=== PATIENT | male | born 1960 | race Caucasian/White ===

== ENCOUNTER 2017-01-20 06:06 | Inpatient (IN) | payer OTHER ==
[~2017-01-20] VITALS: Ht 170.2 cm; Wt 117.2 kg
--- NOTE | ~2017-01-20 | CON ---
PATIENT'S NAME: ELAINE CARTWRIGHT [facility] AGE: 56 Y [address] ROOM: [address] [place], [place] [address] LOCATION: GPCU ADMIT DATE: 01/20/2017 Consultation DISCHARGE DATE: FAMILY PHYSICIAN: Rajat Vann PA-C ATTENDING PHYSICIAN: AISHA EMERSON DATE OF CONSULTATION: 01/20/2017 REFERRING PHYSICIAN: JERO MCCURDY REQUESTING PHYSICIAN: Aisha Emerson MD. REASON FOR CONSULTATION: Multivessel coronary artery disease, severe, and ischemic cardiomyopathy. HISTORY OF PRESENT ILLNESS: The patient is a 56-year-old white male who resides in [place]. Back in early December of this year, the patient began spontaneously having symptomatology of dyspnea on exertion as well as significant swelling in his bilateral lower extremities. He went in to see his primary provider and began a diuretic therapy as well as the start of a cardiac workup consisting of an echocardiogram on December 25, 2016. The echo revealed inferior wall hypokinesis with the ejection fraction of 30%. The patient was felt to be at a level of congestive heart failure systolically at stage 4. He was set up to have a stress test that returned positive on January 12, 2017. He was, therefore, set up to see Dr. Emerson in the outreach clinic whereby she ordered a diagnostic heart catheterization for anginal equivalent. The patient utilized the diuretic therapy and apparently dropped about 22 pounds in fluid weight. He presented yesterday for his diagnostic catheterization with fairly significant findings to include no left main coronary artery disease. The LAD at the distal portion demonstrated a 90% stenosis. A lesion on the first diagonal proximally was stenosed at 95%. To the left circumflex and ostial 90% stenosis, proximally 90% stenosis, the first obtuse marginal is 100% stenosis, and the distal area is 90%. To the RCA, a mid 70% stenosis and a first right posterior lateral branch ostially at 100% stenosis. The ramus intermedius demonstrated a proximal subsection at 100% stenosis. Dr. Gardner discussed the findings with the patient and his family, and the patient was referred for coronary artery bypass grafting. The patient's history is for insulin-dependent diabetes mellitus, poorly controlled hypertension, and ischemic cardiomyopathy. The EF per the cardiac catheterization returned at 40%. PAST MEDICAL HISTORY: Illnesses: Insulin-dependent diabetes mellitus, dyslipidemia, systolic congestive heart failure, hypertension, GERD, nephrolithiasis, osteoarthritis, PATIENT'S NAME: ELAINE CARTWRIGHT [facility] AGE: 56 Y [address] ROOM: [address] [place], [place] [address] [facility] ADMIT DATE: 01/20/2017 Consultation DISCHARGE DATE: FAMILY PHYSICIAN: Rajat Vann PA-C ATTENDING PHYSICIAN: AISHA EMERSON ischemic cardiomyopathy. SURGERY/PROCEDURES: A left elbow repair following fracture, left shoulder repair, and right-sided carpal tunnel release. ALLERGIES: METFORMIN AND FLAGYL. SOCIAL HISTORY: The patient is . He and his reside in [place], [place]. The couple have grown children. The patient does chew tobacco approximately 1 can every 3 days. He does occasionally imbibe. He works for the [employer] in [place]. FAMILY HISTORY: His father had a history with heart disease. His father, as the patient shares, had coronary artery bypass grafting and in the procedure. His mother had a history with diabetes mellitus and had a stroke. His brother has a history with colon cancer. MEDICATIONS: 1. Aspirin 81 mg daily. 2. Lipitor 40 mg daily. 3. Farxiga 10 mg q.a.m. 4. Herba-Vision one tablet daily. 5. Humalog 75/25, 30 units subcu in the a.m. 6. Humalog 75/25, 40 units in the p.m. 7. Losartan/hydrochlorothiazide 100/25 one p.o. daily. 8. Melatonin 10 mg at h.s. 9. Multivitamin daily. 10. Prilosec 20 mg daily. 11. Klor-Con 10 mEq daily. 12. Viagra 50 mg p.o. daily/p.r.n. 13. Demadex 10 mg daily/p.r.n. edema. 14. Garcinia cambogia tablet one p.o. daily. SYSTEM REVIEW: GENERAL: The patient does state that he did lose about 22 pounds in fluid weight after diuresis from the onset of fluid. No fever, chills, or sweats. He has had some fatigue. HEENT: No visual complaints. He does wear glasses. No hearing complaints. He does have some age-related changes. No difficulty swallowing, change in voice, or hoarseness. RESPIRATORY: The patient has had some cough as well as associated dyspnea on PATIENT'S NAME: ELAINE CARTWRIGHT [facility] AGE: 56 Y [address] ROOM: [address] [place], [place] [address] [facility] ADMIT DATE: 01/20/2017 Consultation DISCHARGE DATE: FAMILY PHYSICIAN: Rajat Vann PA-C ATTENDING PHYSICIAN: AISHA EMERSON exertion, shortness of breath at rest. This has since resolved, however, with removal of fluid. CARDIOVASCULAR: The patient has never had any chest pain, chest pressure, or palpitations. No intermittent claudication. He no longer has complaints of the lower extremity edema. GI: No nausea, vomiting, constipation, or diarrhea. He does have reflux and heartburn and takes medication. : Does have history with nephrolithiasis and erectile dysfunction. MUSCULOSKELETAL: Generalized arthritic aches and pains. NEUROLOGIC: No frequent or severe headaches. No history of seizures, memory loss, or syncope. PSYCHIATRIC: No psychiatric or psychiatric treatment history. ENDOCRINE: He does have a history of diabetes mellitus, which is not overly well controlled. He has started a new medication recently. No history of diagnosed thyroid disease. INTEGUMENT: No known skin disease. PHYSICAL EXAMINATION: VITAL SIGNS: Blood pressure 168/83, pulse is 68, respirations 18, temp 97.7, O2 saturations 98% on room air. Weight is 115 kg, height is 170.2 cm. GENERAL: He is very pleasant. He is in no acute distress. He is somewhat tearful regarding the results of his cardiac catheterization. HEENT: Normocephalic with EOMIs intact. Conjunctivae clear. NECK: Trachea midline with no palpable lymphadenopathy or thyromegaly. LUNGS: Clear to auscultation bilaterally. CARDIOVASCULAR: Regular rate and rhythm. ABDOMEN: Obese, soft, nontender by 4 quadrants with positive bowel sounds throughout. EXTREMITIES: No overt varicosities or edema. MUSCULOSKELETAL: Good range of motion of bilateral upper and lower extremities. NEUROLOGIC: Alert and oriented. SKIN: No suspicious skin lesions. LABORATORY DATA: Laboratory and test results, creatinine is 1.3. IMPRESSION: 1. Severe multivessel coronary artery disease. 2. Ischemic cardiomyopathy. 3. Poorly controlled hypertension. 4. Diabetes mellitus. 5. Acute kidney injury, likely due to recent diuresis and ibuprofen use. RECOMMENDATION AND PLAN: PATIENT'S NAME: ELAINE CARTWRIGHT [facility] AGE: 56 Y [address] ROOM: [address] [place], [place] [address] LOCATION: GPCU ADMIT DATE: 01/20/2017 Consultation DISCHARGE DATE: FAMILY PHYSICIAN: Rajat Vann PA-C ATTENDING PHYSICIAN: AISHA EMERSON Dr. spoke to the patient and his family with regard to surgical revascularization. The cardiac catheterization film was reviewed. Recommended are 4-5 vessel bypass surgery. Risks and benefits of the procedure were discussed. Discussion of the risks include, but were not limited to, bleeding, requiring transfusion or return to the operative suite, myocardial infarction, cerebrovascular accident, renal and/or pulmonary failure. Also discussed arrhythmias and infection as well as operative and postoperative mortality. The patient verbalizes understanding of the risks and benefits. He does consent to proceed. We will plan for surgery on January 22, 2017. Questions were asked and answered to the patient and family's satisfaction. We would like to thank Dr. Emerson for allowing us to participate in the care of this very pleasant gentleman. EDWIGE LIANG APRN FOR JOSHUA DILLON, DO DLQ/modl /[id number] d: 01/21/174 t: 02/02/17 1132, CONSULTATION REPORT
--- NOTE | ~2017-01-20 | CATH ---
Cardiac Diagnostic Report Demographics Patient Name CHAY Flores Gender Male Date of 1960 Age 56 year(s) Patient Number [id number] Date of Study 01/20/2017 Visit Number [id number] Room Number G63[address] [place] [id number] Ht 170.18 cm Wt 115 kg Referring Edwar Earl I Primary Physician Physician RONN Performing [facility] Secondary Physician Physician Aisha LION Diagnostic [facility] Assisting Physician Physician Aisha LION Interventional Physician Arson And Bomb Investigator Physician Findings and Conclusions Diagnostic Findings and Conclusion Multivessel CAD in Insulin dependant diabetic patient with ischemic Cardiomyopathy with LVEF of 40-45%. 2. No pulmonary HTN, Mean PA 17 mmHg. 3. LVEDP 10 mmHg. Diagnostic Recommendations Refer for CABG. Thanks Dr. Jorge. Continue current medications. Continue aspirin. Beta Emelia. Statin. Hydration and follow up Creatinine. Cardiac diet. Procedure Description The patient was brought to the diagnostic cardiac catheterization-EP laboratory in the fasting, non-sedated state. Informed consent was obtained in the written and verbal form after the risks and benefits were explained. The patient had no further questions and agreed to proceed. The planned puncture-incision site(s) were shaved and prepped with ChloraPrep and draped in the usual sterile manner. Conscious sedation, supplemental oxygen, and pain control medications were delivered by a registered nurse under physician guidance. Surface ECG rhythm, blood pressure measurement, and pulse oximetry were monitored throughout the procedure. Arterial access. The access site was infiltrated with lidocaine. The vessel was entered with the Seldinger technique. A sheath was advanced into the vessel and used for catheter placement. Venous access. The access site was infiltrated with 2% lidocaine. The vessel was entered with the Seldinger technique. A sheath was advanced into the vessel and used for catheter placement. Selective left coronary angiography. A catheter was advanced into the left coronary vessel ostium under Fluoroscopic guidance. Contrast was injected by hand. Images were obtained in multiple projections. Selective right coronary angiography. A catheter was advanced into the right coronary vessel ostium under fluoroscopic guidance. Contrast was injected by hand. Images were obtained in multiple projections. Left heart catheterization. A catheter was advanced across the aortic valve to the left ventricle under fluoroscopic guidance. Resting hemodynamics were obtained. Right heart catheterization. A Guilderland Janny catheter was successfully advanced to the right atrium, right ventricle, pulmonary artery, and pulmonary artery wedge position under fluoroscopic guidance. Resting hemodynamics were obtained. Measurements included pressures, arterial and venous oxygen saturation samples, and cardiac output. The Guilderland was removed without difficulty. Arterial and Venous hemostasis was achieved. The patient was transferred to a regular nursing floor via cart accompanied by a nurse. The patient left the laboratory in stable condition. Diagnostic Cath Status: Elective Procedure Procedure Type Diagnostic procedure:Angiography:, Right and Left Heart Cath, Coronary Angios Indications: Unstable angina. The procedure was explained in detail to the patient. Risks, complications and alternative treatments were reviewed. Written consent was obtained. Medications Reviewed with Patient prior to Procedure. Angiographic Findings Dominance: Right Cardiac Arteries and Lesion Findings LMCA: Normal (0% Stenosis). LAD: Lesion on Mid LAD: 30% stenosis . Lesion on Dist LAD: 90% stenosis . Lesion on 1st Diag: Proximal subsection.95% stenosis .The lesion was diffuse. LCx: Lesion on Prox CX: Ostial.90% stenosis . Lesion on Prox CX: 90% stenosis . Lesion on 1st Ob Conchis% stenosis . Lesion on Dist CX: 90% stenosis . RCA: Lesion on Mid RCA: 70% stenosis . Lesion on 1st RPL: Ostial.100% stenosis . Lesion on R PDA: 10% stenosis . Ramus: Lesion on Ramus: Proximal subsection.100% stenosis . Cardiac Collaterals - collateral flow from the Dist LAD to the R PDA. - collateral flow from the Dist RCA to the Dist CX. Coronary Tree Procedure Data Procedure Date Date: 01/20/2017Start: 08:36 AMEnd: 09:23 AM Entry Locations - Retrograde Percutaneous access was performed through the Right Radial artery (Primary location). A 5 Fr sheath was inserted. Hemostasis was successfully obtained using Mechanical Compression. Closure Comments: R band with 13 cc air deployed by RT Sakina.. - Antegrade Percutaneous access was performed through the Right Brachial vein. A 6 Fr sheath was inserted. Hemostasis was successfully obtained using Manual Compression. Closure Comments: Pressure held for 10 minutes by RT. Sakina. Procedure Medications Order and Administration + + + +-------+ !Time !Medication !Dosage !Route ! + + + +-------+ !01/20/2017 08:34 AM !Versed !1 mg !I.V. ! + + + +-------+ !01/20/2017 08:35 AM !Fentanyl !50 mcg !I.V. ! + + + +-------+ !01/20/2017 08:39 AM !Radial Verapamil !2.5 mg !I.A. ! + + + +-------+ !01/20/2017 08:42 AM !Oxygen !2 l/min !NC ! + + + +-------+ !01/20/2017 08:52 AM !Heparin (ACC_3) !5000 units !I.V. ! + + + +-------+ Devices Used - A6 Fr. Balloon Wedge Catheterwas used for:Right heart cath. - A5 Fr. BS JR 4 Diag. Catheterwas used for:Right coronary angiography. - A5 Fr. BS JL 3.5 Diag. Catheterwas used for:Left coronary angiography. - A5 Fr. BS Angled Pigtail Diag. Catheterwas used for:LV Pressures. Contrast Material - Isovue 76616 ml Fluoroscopy Time: Diagnostic: 4:42 minutes. Total: 4:42 minutes. Fluoroscopy Dose: Diagnostic: 1337 mGy. Total: 1337 mGy. Estimated Blood Loss: 10 ml. Medical History Performed Procedures and Imaging Results - Stress testing with SPECT MPIwas performed. Results were: Positive. Risk/Extent of ischemia was: High risk. Allergies - Other:(Metformin, Flagyl). Risk Factors The patient risk factors include:hypertension, diabetes mellitus, chronic lung disease, last creatinine: 1.3 mg/dl, creatinine clearance: 100.75 ml/min, dyslipidemia and prior heart failure . Admission Data Admission Date: 01/20/2017 Admission Time: 06:06 AM Admit Source: Other Insurance Payors: Medicare. Admission Medications + +------+-------+ + + + + !Medication!Dosage!Times !Last !Last !Administered !Comments ! ! ! !Per Day!Delivery !Delivery ! ! ! ! ! ! !Date !Time ! ! ! + +------+-------+ + + + + !Aspirin ! ! ! ! !Yes ! ! !(any) ! ! ! ! ! ! ! + +------+-------+ + + + + !ARB (any) ! ! ! ! !Yes ! ! + +------+-------+ + + + + !Statin ! ! ! ! !Yes ! ! !(any) ! ! ! ! ! ! ! + +------+-------+ + + + + Clinical Evaluation Leading to Procedure - The patient's CAD presentation was assessed as: Unstable angina. - The patient's anginal syndrome during the past two weeks was assessed as: Class II according to the [place] Cardiovascular Society Classification System (CCS). - The patient has been in a state of heart failure within the past two weeks. - The patient's heart failure status was assessed as NYHA Class III. - The reason for the patient's optical laboratory mechanic visit is evaluation of cardiomyopathy and/or evaluation of left ventricular systolic dysfunction. Hemodynamics Condition: Rest O2 Consumption: Estimated: 250.40Heart Rate: 54 bpm Oxygen Saturation +--------+-----+----+ +---+ + !Location!pCO2 !pO2 !% Saturation !Hgb!O2 Content ! +--------+-----+----+ +---+ + !RV ! ! !71.1 ! ! ! +--------+-----+----+ +---+ + !PA ! ! !70.2 ! ! ! +--------+-----+----+ +---+ + !AO ! ! !94.2 ! ! ! +--------+-----+----+ +---+ + Pressures (mmHg) +-----+ + !Site !Pressure ! +-----+ + !PCW !25/08 (10) ! +-----+ + !PA !05/09 (17) ! +-----+ + !RV !/- ,5 ! +-----+ + !RA !05/15 (4) ! +-----+ + !AO !143/ (106) ! +-----+ + !AO !143/ (108) ! +-----+ + !LV !146/2 ,8 ! +-----+ + !LV !151/3 ,10 ! +-----+ + !AO !149/79 (106) ! +-----+ + !LV !152/3 ,11 ! +-----+ + Cardiac Output +------+ + + + !Method!CO (l/min) !CI (l/min/m2) !SV (ml) ! +------+ + + + !Nancy !4.51 !2 !83.81 ! +------+ + + + Valve Gradients and Areas + +--------+--------+--------+---------+ + + !Valve !Peak !Mean !Area !Index !Flow !Source ! + +--------+--------+--------+---------+ + + !Aortic !3 !5 !2.19 !0.98 !216.72 !Nancy ! + +--------+--------+--------+---------+ + + !Aortic !3 !5 ! ! ! ! ! + +--------+--------+--------+---------+ + + Shunts Oxygen Values O2 Capacity 231.2 O2 Consumption 250.4 Flows (l/min) Qs 4.51 Qe/Qp 1 Qp 4.51 Qp/Qs 1 Qe 4.51 Vascular Resistance (dynes x sec x cm-5) + +----+----+----+----+---------+-------+ !CO method !TSVR!SVR !TPVR!PVR !TPVR/TSVR!PVR/SVR! + +----+----+----+----+---------+-------+ !Nancy !23.5!22.6!3.66!1.34!0.16 !0.06 ! + +----+----+----+----+---------+-------+ !Qp or Qs !23.5!22.6!3.66!1.34!0.16 !0.06 ! + +----+----+----+----+---------+-------+ Signatures dtt: AISHA EMERSON dtd: 01/20/17 0836 Physician Self Edit
--- NOTE | ~2017-01-20 | ENPV ---
Vascular Lower Extremity Vein Mapping Procedure Demographics Patient Name ELAINE CARTWRIGHT Date of Study 01/20/2017 Patient Number [id number] Gender Male Date of 1960 Age 56 Visit Number [id number] Height 67 Accession Number [id number] Weight 253.53 Referring Edwar Earl I PAC Interpreting Gee Aguillon MD Physician David Leonard Physician Physician Ordering David Leonard Sleeve Setter Safety Stitch Physician Yardage Tufting Machine Operator Melonie Grace [facility] Dylan Narvaez Conclusions Summary No evidence of superficial thrombophlebitis bilaterally. The left greater saphenous vein appears more suitable for harvest. Procedure Type of Study: Veins:Lower Extremity Vein Mapping, Vein Mapping. Indications for Study:Pre-op CABG. Appropriate Use Criteria:8 Allergies - Other:(Metformin, Flagyl). Patient Status:Routine. Study Location:Inpatient Portable. Technical Quality:Adequate visualization. Risk Factors - The patient's risk factor(s) include: chronic lung disease, diabetes mellitus, dyslipidemia and arterial hypertension. - The patient's last creatinine was 1.3 mg/dl. Velocities are measured in cm/s ; Diameters are measured in cm + ++--------++--------+ !Superficial - Great Saphenous Vein !!Right !!Left ! + ++--------++--------+ !Location !!Diameter!!Diameter! + ++--------++--------+ !Sapheno Femoral Junction !!0.68 !!0.34 ! + ++--------++--------+ !GSV High Thigh !!0.48 !!0.36 ! + ++--------++--------+ !GSV Mid Thigh !!0.4 !!0.42 ! + ++--------++--------+ !GSV Low Thigh !!0.35 !!0.36 ! + ++--------++--------+ !GSV Knee !!0.32 !!0.35 ! + ++--------++--------+ !GSV High Calf !!0.24 !!0.37 ! + ++--------++--------+ !GSV Mid Calf !!0.25 !!0.34 ! + ++--------++--------+ !GSV Low Calf !!0.39 !!0.36 ! + ++--------++--------+ Signature dtt: MADDY OCHOA dtcaroline: 01/20/17 1415 Physician Self Edit
--- NOTE | ~2017-01-20 | OR ---
PATIENT'S NAME: [facility] AGE: 56 Y [address] ROOM: [place] [address] LOCATION: GPCU ADMIT DATE: 01/20/2017 OR/Procedure Report DISCHARGE DATE: 01/28/2017 FAMILY PHYSICIAN: Rajat Vann PA-C ATTENDING PHYSICIAN: Aisha Hernandez SURGEON: Jorge Jorge DO [employer] OPERATOR: DATE OF PROCEDURE: 01/22/2017 PREOPERATIVE DIAGNOSES: 1. Gxx-WI-kgjdanx elevation myocardial infarction. 2. Congestive heart failure. 3. Coronary vessel coronary artery disease. 4. Diabetes mellitus. 5. Obesity. 6. Hypertension. 7. Ejection fraction 30%. POSTOPERATIVE DIAGNOSES: 1. Mtv-TP-pjohdop elevation myocardial infarction. 2. Congestive heart failure. 3. Coronary vessel coronary artery disease. 4. Diabetes mellitus. 5. Obesity. 6. Hypertension. PROCEDURES: 1. Coronary artery bypass grafting x6, reverse saphenous vein graft to the apical left anterior descending sequential to diagonal. 2. Reverse saphenous vein graft to the posterior descending artery, reverse saphenous vein graft to the posterolateral septal branch, reverse saphenous vein graft to the ramus intermedius artery sequential to the obtuse marginal artery. REFERRING PHYSICIAN: Aisha Hernandez M.D. DESCRIPTION OF PROCEDURE: The patient is a 56-year-old white male with the above-noted diagnosis. He has been brought to the operative suite today after informed consent was obtained. He was sterilely prepped and draped in the usual fashion for a sternotomy incision with lower extremity vein harvest. Sternal incision made and the sternum was divided in the midline. Concurrently to this, saphenous vein was harvested endoscopically from the lower extremities. His coronary catheterization had shown his proximal and mid LAD to be relatively free of disease, however, the very distal LAD was tightly stenosed and had a wrap-around LAD. SILVA would not reach this and given its [facility]GE[facility] 56 Y [address] ROOM: [place] [address] LOCATION: GPCU ADMIT DATE: 01/20/2017 OR/Procedure Report DISCHARGE DATE: 01/28/2017 FAMILY PHYSICIAN: Rajat Vann PA-C ATTENDING PHYSICIAN: IsaacCourtney sousaAisha area of small distribution but a wrap-around that did provide some collateral height, elected to use a vein graft to the distal area. The vein was prepared for bypass. The patient was heparinized. Cannulation sutures placed in the ascending aorta and right atrium for bypass and cardioplegia cannulas. The patient was cannulated and connected to bypass pump without difficulty. Crossclamp was applied. Antegrade and retrograde cardioplegia were given along with topical cold saline cardiac arrest and the heart arrested without difficulty. The inferior small of the heart was inspected. Given total occlusion in this area, we were not exactly sure what we have find. We thought there would be a posterolateral branch, but we were pleased to find both posterolateral and posterior descending branches of adequate caliber. We began with the posterolateral branch and end-to-side anastomosis created with the saphenous vein. It was sized appropriately and connected to cardioplegia system. Another 500 mL of vein graft and retrograde cardioplegia was given and this was done after each venous distal anastomosis. Similar venous distal anastomosis was then created to the posterior descending artery. We then identified the obtuse marginal and a ramus, although they were of smaller caliber. We felt that given his lateral wall ischemia and revascularize as much as possible in this area would be of benefit. We began with the obtuse marginal, performed our end-to-side anastomosis here, and then sequential this to the ramus in a [id number] fashion and then connected again to the cardioplegia system. Finally, we identified the apical segment of the LAD, performed an end-to-side anastomosis there, and then a [id number] anastomosis to the diagonal and then removed the crossclamp. We now hooked all of our grafts to the Octopus system and initiated retrograde warm blood along with vein graft warm blood and placed our partial occlusion clamp. We then placed 2 of our grafts to the ascending aorta under partial occlusion clamping with 4-0 punch and 6-0 Prolene. We then removed the partial occlusion clamp de- aired. The grafts and the bulldogs were removed and distal flow was given. We then utilized 4.3 and 3.8 heartstring for the remainder of the anastomosis to the ascending aorta. Once all this was completed, all distal sites were inspected and found to be hemostatic. Proximal sites were found to be hemostatic. Warm blood was now discontinued and the retrograde cannula was removed. Ventilations were initiated. We began to wean from cardiopulmonary bypass. We weaned from bypass without difficulty removing the venous cannula, returning the pumped volume from the pump to the patient, and then removing the ascending aortic cannula and giving protamine. Two atrial and one ventricular temporary pacemaking wires were placed. Two chest tubes were placed, one in the anterior mediastinal space and one in the posterior pericardial space, and the sternum was then approximated with ZIPFIX system. Soft tissues irrigated and again closed in layered fashion. All sponge, instrument, and needle counts were correct. The patient was transferred to the intensive care unit in stable condition. PATIENT'S NAME: [facility] AGE: 56 Y [address] ROOM: [address] [address] LOCATION: GPCU ADMIT DATE: 01/20/2017 OR/Procedure Report DISCHARGE DATE: 01/28/2017 FAMILY PHYSICIAN: Rajat Vann PA-C ATTENDING PHYSICIAN: Aisha Hernandez DO JOHNY FRIEDMAN/douglas /[id number] CC: JERO MCCURDY d: 02/02/17 1858 t: 02/03/17 0932, OPERATIVE SUMMARY
[~2017-01-20 06:06] MED LIST: ASPIRIN LO-DOSE81 MG PO; DEMADEX20 MG PO; FARXIGA10 MG PO; GARCINIA CAMBO1 EACH PO; HUMALOG MI100 UNIT/5 SUB-Q; KLOR-CON 1010 MEQ PO; LIPITOR40 MG PO; LOSARTAN-HCTZ1 EAC1 PO; MELATONIN10 M2 PO; MULTI VITAMIN1 EACH PO; PRILOSEC20 MG PO; VIAGRA100 MG PO; [UNRECOGNIZED DRUG - OTHER] PO
[2017-01-20 06:47] LABS: BASOPHIL # 0.1 K/uL (0.0-0.2); BASOPHIL % 0.8 %; EOSINOPHIL # 0.2 K/uL (0.0-0.5); EOSINOPHIL % 2.7 %; HEMATOCRIT 49.1 % (37.0-53.0); IMMATURE GRANULOCYTE # 0.1 K/uL (0.0-0.3); IMMATURE GRANULOCYTE % 0.7 %; LYMPHOCYTE # 2.8 K/uL (0.8-4.0); LYMPHOCYTE % 32.7 %; MCH 30.9 pg (27.0-34.0); MCHC 34.6 gm/dL (32.0-36.5); MCV 89.1 fl (83.0-98.0); MONOCYTE % 11.3 %; MPV 10.1 fl (9.4-12.4); NEUTROPHIL # (ANC) 4.4 K/uL (1.4-9.0); NEUTROPHIL % 51.8 %; NRBC % 0 /100WBC (0-0.00); PLATELET COUNT 190 K/uL (150-450); RBC 5.51 M/uL (4.00-6.00); RDW-CV 12.5 % (11.9-14.6); WBC 8.5 K/uL (4.0-11.0)
[2017-01-20 07:03] LABS: INR - (THERAPEUTIC) 0.97 (0.92-1.07); PROTIME 10.2 SECONDS (9.8-11.4); PTT 26 SECONDS (25-32)
[2017-01-20 07:09] LABS: ALBUMIN 3.7 gm/dL (3.5-5.0); ANION GAP 12.3 (10.0-19.0); CALCIUM 8.5 mg/dL (8.5-10.5); CREATININE 1.3 mg/dL (0.6-1.3); POTASSIUM 4.3 mMol/L (3.7-5.1); TOTAL BILIRUBIN 0.3 mg/dL (0.0-1.5); TOTAL PROTEIN 7.3 g/dL (6.0-8.4)
[2017-01-20 16:08] LABS: BASOPHIL # 0.1 K/uL (0.0-0.2); BASOPHIL % 0.8 %; EOSINOPHIL # 0.2 K/uL (0.0-0.5); EOSINOPHIL % 2.5 %; HEMOGLOBIN 15.9 g/dL (12.0-17.0); IMMATURE GRANULOCYTE # 0.1 K/uL (0.0-0.3); IMMATURE GRANULOCYTE % 0.6 %; LYMPHOCYTE # 2.5 K/uL (0.8-4.0); LYMPHOCYTE % 28.9 %; MCH 30.4 pg (27.0-34.0); MCHC 34.6 gm/dL (32.0-36.5); MONOCYTE # 0.8 K/uL (0.0-1.0); MONOCYTE % 8.7 %; MPV 10.3 fl (9.4-12.4); NEUTROPHIL # (ANC) 5.1 K/uL (1.4-9.0); NEUTROPHIL % 58.5 %; NRBC % 0 /100WBC (0-0.00); PLATELET COUNT 165 K/uL (150-450); RBC 5.23 M/uL (4.00-6.00); RDW-CV 12.4 % (11.9-14.6); WBC 8.7 K/uL (4.0-11.0)
[2017-01-20 16:20] LABS: PROTIME 10.5 SECONDS (9.8-11.4)
[2017-01-20 16:24] LABS: CREATININE 1.2 mg/dL (0.6-1.3); ESTIMATED GFR (MDRD EQUATION) > 60
[2017-01-21 01:21] LABS: BILIRUBIN URINE NEGATIVE (NEGATIVE); BLOOD URINE NEGATIVE /UL (NEGATIVE); COLOR URINE YELLOW (YELLOW); GLUCOSE URINE 1000 mg/dL (NEGATIVE); KETONE URINE NEGATIVE (NEGATIVE); LEUKOCYTES URINE NEGATIVE /UL (NEGATIVE); NITRITE URINE NEGATIVE (NEGATIVE); PROTEIN URINE NEGATIVE (NEGATIVE); TURBIDITY URINE CLEAR (CLEAR); UROBILINOGEN URINE NORMAL (NORMAL)
[2017-01-21 08:53] LABS: ALBUMIN 3.5 gm/dL (3.5-5.0); ANION GAP 12.1 (10.0-19.0); BLOOD UREA NITROGEN 18 mg/dL (6-24); CALCIUM 8.2 mg/dL (8.5-10.5); CHLORIDE 108 mMol/L (96-110); CO2 23 mMol/L (22-32); ESTIMATED GFR (MDRD EQUATION) > 60; PHOSPHORUS 3.3 mg/dL (2.5-4.9); POTASSIUM 4.1 mMol/L (3.7-5.1); SODIUM 139 mMol/L (135-145)
[2017-01-21 13:37] LABS: BICARBONATE 24.2 mmol/L (18.0-23.0); PCO2 39 mmHg (35-45); PO2 72 mmHg (80-90)
[2017-01-22 05:13] LABS: ALBUMIN 3.1 gm/dL (3.5-5.0); ANION GAP 10.7 (10.0-19.0); BLOOD UREA NITROGEN 19 mg/dL (6-24); CALCIUM 8.2 mg/dL (8.5-10.5); CHLORIDE 108 mMol/L (96-110); CO2 26 mMol/L (22-32); ESTIMATED GFR (MDRD EQUATION) > 60; PHOSPHORUS 3.4 mg/dL (2.5-4.9); POTASSIUM 3.7 mMol/L (3.7-5.1); SODIUM 141 mMol/L (135-145)
[2017-01-22 19:13] LABS: MCV 89.1 fl (83.0-98.0); RDW-CV 12.4 % (11.9-14.6)
[2017-01-22 19:16] LABS: RBC 2.94 M/uL (4.00-6.00)
[2017-01-22 19:17] LABS: HEMATOCRIT 26.2 % (37.0-53.0); HEMOGLOBIN 9.1 g/dL (12.0-17.0); MCHC 34.7 gm/dL (32.0-36.5); PLATELET COUNT 64 K/uL (150-450)
[2017-01-22 19:25] LABS: INR - (THERAPEUTIC) 1.72 (0.92-1.07); PROTIME 18.2 SECONDS (9.8-11.4)
[2017-01-22 19:26] LABS: PTT 29 SECONDS (25-32)
[2017-01-22 20:24] LABS: BICARBONATE 24.7 mmol/L (18.0-23.0); PCO2 39 mmHg (35-45); PO2 110 mmHg (80-90)
[2017-01-22 20:27] LABS: BICARBONATE 23.1 mmol/L (18.0-23.0); PCO2 36 mmHg (35-45); PO2 229 mmHg (80-90)
[2017-01-22 20:28] LABS: POTASSIUM 4.1 mEq/L (3.7-5.1); SODIUM 138 mEq/L (135-145)
[2017-01-22 20:29] LABS: PCO2 44 mmHg (35-45); PO2 275 mmHg (80-90); POTASSIUM 4.7 mEq/L (3.7-5.1); SODIUM 135 mEq/L (135-145)
[2017-01-22 20:39] LABS: ANION GAP 11.1 (10.0-19.0); BLOOD UREA NITROGEN 14 mg/dL (6-24); CALCIUM 7.7 mg/dL (8.5-10.5); CHLORIDE 110 mMol/L (96-110); CO2 23 mMol/L (22-32); CREATININE 1.1 mg/dL (0.6-1.3); ESTIMATED GFR (MDRD EQUATION) > 60; POTASSIUM 4.1 mMol/L (3.7-5.1); SODIUM 140 mMol/L (135-145)
[2017-01-22 20:40] LABS: BICARBONATE 25.7 mmol/L (18.0-23.0); PCO2 48 mmHg (35-45); PO2 257 mmHg (80-90)
[2017-01-22 20:41] LABS: POTASSIUM 4.5 mEq/L (3.7-5.1); SODIUM 137 mEq/L (135-145)
[2017-01-22 20:42] LABS: BICARBONATE 25.7 mmol/L (18.0-23.0); PCO2 53 mmHg (35-45); PO2 237 mmHg (80-90); POTASSIUM 3.8 mEq/L (3.7-5.1); SODIUM 138 mEq/L (135-145)
[2017-01-22 20:43] LABS: BICARBONATE 25.9 mmol/L (18.0-23.0); PCO2 45 mmHg (35-45); PO2 214 mmHg (80-90); POTASSIUM 3.8 mEq/L (3.7-5.1); SODIUM 137 mEq/L (135-145)
[2017-01-22 20:58] LABS: ALPHA ANGLE 62 degrees; CLOT FORMATION TIME 162 seconds; MAXIMUM CLOT FIRMNESS 47 mm; MAXIMUM LYSIS 0 %
[2017-01-22 20:59] LABS: ALPHA ANGLE 62 degrees (70-81); CLOTTING TIME 171 seconds; CLOTTING TIME 88 seconds (43-82); MAXIMUM CLOT FIRMNESS 48 mm (51-72)
[2017-01-23 04:27] LABS: BICARBONATE 25.4 mmol/L (18.0-23.0); PCO2 40 mmHg (35-45); PO2 67 mmHg (80-90)
[2017-01-23 04:42] LABS: ANION GAP 13.4 (10.0-19.0); BLOOD UREA NITROGEN 16 mg/dL (6-24); CHLORIDE 109 mMol/L (96-110); CO2 24 mMol/L (22-32); CREATININE 1.1 mg/dL (0.6-1.3); ESTIMATED GFR (MDRD EQUATION) > 60; POTASSIUM 4.4 mMol/L (3.7-5.1); SODIUM 142 mMol/L (135-145)
[2017-01-23 04:49] LABS: BASOPHIL # 0.1 K/uL (0.0-0.2); BASOPHIL % 0.3 %; HEMOGLOBIN 12.5 g/dL (12.0-17.0); IMMATURE GRANULOCYTE # 0.1 K/uL (0.0-0.3); IMMATURE GRANULOCYTE % 0.5 %; LYMPHOCYTE # 0.8 K/uL (0.8-4.0); LYMPHOCYTE % 5.1 %; MCV 88.3 fl (83.0-98.0); MONOCYTE # 1.4 K/uL (0.0-1.0); MONOCYTE % 8.7 %; NEUTROPHIL # (ANC) 13.8 K/uL (1.4-9.0); NEUTROPHIL % 85.4 %; NRBC % 0 /100WBC (0-0.00); RDW-CV 12.6 % (11.9-14.6)
[2017-01-23 04:50] LABS: HEMATOCRIT 36.3 % (37.0-53.0); MCH 30.4 pg (27.0-34.0); MCHC 34.4 gm/dL (32.0-36.5); PLATELET COUNT 103 K/uL (150-450); RBC 4.11 M/uL (4.00-6.00); WBC 16.1 K/uL (4.0-11.0)
[2017-01-24 04:14] LABS: HEMOGLOBIN 11.9 g/dL (12.0-17.0); MCH 30.9 pg (27.0-34.0); MCV 90.9 fl (83.0-98.0); MPV 10.2 fl (9.4-12.4); RBC 3.85 M/uL (4.00-6.00); RDW-CV 13.2 % (11.9-14.6)
[2017-01-24 04:26] LABS: CALCIUM 7.7 mg/dL (8.5-10.5); CREATININE 1.3 mg/dL (0.6-1.3)
[2017-01-25 03:51] LABS: BASOPHIL # 0.1 K/uL (0.0-0.2); BASOPHIL % 0.5 %; EOSINOPHIL # 0.2 K/uL (0.0-0.5); EOSINOPHIL % 1.2 %; HEMATOCRIT 34.4 % (37.0-53.0); HEMOGLOBIN 11.6 g/dL (12.0-17.0); IMMATURE GRANULOCYTE # 0.1 K/uL (0.0-0.3); IMMATURE GRANULOCYTE % 0.9 %; LYMPHOCYTE # 2.3 K/uL (0.8-4.0); LYMPHOCYTE % 17.3 %; MCH 30.7 pg (27.0-34.0); MCHC 33.7 gm/dL (32.0-36.5); MONOCYTE # 1.6 K/uL (0.0-1.0); MPV 10.7 fl (9.4-12.4); NEUTROPHIL % 68.1 %; NRBC % 0 /100WBC (0-0.00); PLATELET COUNT 101 K/uL (150-450); RBC 3.78 M/uL (4.00-6.00); RDW-CV 12.9 % (11.9-14.6); WBC 13.2 K/uL (4.0-11.0)
[2017-01-25 04:07] LABS: ALBUMIN 2.7 gm/dL (3.5-5.0); ANION GAP 10.5 (10.0-19.0); BLOOD UREA NITROGEN 20 mg/dL (6-24); CALCIUM 7.8 mg/dL (8.5-10.5); CHLORIDE 105 mMol/L (96-110); CO2 25 mMol/L (22-32); CREATININE 1.1 mg/dL (0.6-1.3); ESTIMATED GFR (MDRD EQUATION) > 60; PHOSPHORUS 2.4 mg/dL (2.5-4.9); POTASSIUM 4.5 mMol/L (3.7-5.1); SODIUM 136 mMol/L (135-145)
[2017-01-26 06:04] LABS: ALBUMIN 2.5 gm/dL (3.5-5.0); ANION GAP 12.1 (10.0-19.0); BLOOD UREA NITROGEN 22 mg/dL (6-24); CHLORIDE 104 mMol/L (96-110); CO2 28 mMol/L (22-32); ESTIMATED GFR (MDRD EQUATION) > 60; PHOSPHORUS 3.1 mg/dL (2.5-4.9); POTASSIUM 4.1 mMol/L (3.7-5.1); SODIUM 140 mMol/L (135-145)
[2017-01-27 05:27] LABS: BASOPHIL # 0.1 K/uL (0.0-0.2); BASOPHIL % 0.6 %; EOSINOPHIL # 0.6 K/uL (0.0-0.5); EOSINOPHIL % 4.9 %; HEMATOCRIT 35.4 % (37.0-53.0); HEMOGLOBIN 12.2 g/dL (12.0-17.0); IMMATURE GRANULOCYTE # 0.1 K/uL (0.0-0.3); IMMATURE GRANULOCYTE % 1.1 %; LYMPHOCYTE # 2.5 K/uL (0.8-4.0); LYMPHOCYTE % 21.5 %; MCHC 34.5 gm/dL (32.0-36.5); MCV 90.1 fl (83.0-98.0); MONOCYTE # 1.5 K/uL (0.0-1.0); MONOCYTE % 12.7 %; MPV 9.5 fl (9.4-12.4); NEUTROPHIL # (ANC) 6.9 K/uL (1.4-9.0); NEUTROPHIL % 59.2 %; NRBC % 0 /100WBC (0-0.00); RBC 3.93 M/uL (4.00-6.00); RDW-CV 12.6 % (11.9-14.6); WBC 11.6 K/uL (4.0-11.0)
[2017-01-27 05:29] LABS: PLATELET COUNT 182 K/uL (150-450)
[2017-01-27 05:46] LABS: ANION GAP 12.9 (10.0-19.0); BLOOD UREA NITROGEN 25 mg/dL (6-24); CHLORIDE 106 mMol/L (96-110); CO2 26 mMol/L (22-32); ESTIMATED GFR (MDRD EQUATION) > 60; POTASSIUM 3.9 mMol/L (3.7-5.1); SODIUM 141 mMol/L (135-145)
[2017-01-28 04:15] LABS: ALBUMIN 2.6 gm/dL (3.5-5.0); ANION GAP 11.7 (10.0-19.0); BLOOD UREA NITROGEN 28 mg/dL (6-24); CALCIUM 8.2 mg/dL (8.5-10.5); CHLORIDE 105 mMol/L (96-110); CO2 26 mMol/L (22-32); CREATININE 1.2 mg/dL (0.6-1.3); ESTIMATED GFR (MDRD EQUATION) > 60; PHOSPHORUS 5.3 mg/dL (2.5-4.9); POTASSIUM 3.7 mMol/L (3.7-5.1); SODIUM 139 mMol/L (135-145)
[2017-01-28] MEDS ORDERED: CORDARONE,PACE200 MG PO (12:29)
[2017-01-28] MEDS ORDERED: COREG6.25 MG PO (12:30)
[2017-01-28] MEDS ORDERED: PLAVIX75 MG PO (12:31)
[2017-01-28] MEDS ORDERED: COLACE100 MG PO (12:32)
[2017-01-28] MEDS ORDERED: COZAAR50 MG PO (12:33)
[2017-01-28] MEDS ORDERED: NICODERM / HABIT7 MG TRANS (12:35)
[2017-01-28] MEDS ORDERED: MYCOLOG OINTMEN15 GM TOP (12:36)
[2017-01-28] MEDS ORDERED: TYLENOL325 MG PO (12:40)
[2017-01-28] MEDS ORDERED: PROVENTIL OR V6.7 GM INH (12:40)
[2017-01-28] MEDS ORDERED: MILK OF MA400 MG/5 M PO (12:41)
[2017-01-28] MEDS ORDERED: MS CONTIN15 MG PO (12:46)
== END 2017-01-28 13:20 | disposition disaster alternative care site (69) | DRG 233 ==
LOC: GPCU 06:06 → GCAT 06:06 → GPCU 09:42 → GCAT 09:43 → GPCU 09:43 → GICU 01-22 12:01 → GPCU 01-23 13:40
PROVIDERS: Nurse Practitioner Women's Health; Thoracic Surgery (Cardiothoracic Vascular Surgery); ADMIT Internal Medicine Interventional Cardiology
PROC: 4A023N8 Measurement of Cardiac Sampling and Pressure, Bilateral, Percutaneous Approach (ICD-10-PCS; 2017-01-20)
PROC: B2111ZZ Fluoroscopy of Multiple Coronary Arteries using Low Osmolar Contrast (ICD-10-PCS; 2017-01-20)
PROC: 02HQ32Z Insertion of Monitoring Device into Right Pulmonary Artery, Percutaneous Approach (ICD-10-PCS; 2017-01-20)
PROC: 06BQ0ZZ Excision of Left Saphenous Vein, Open Approach (ICD-10-PCS; principal; 2017-01-22)
PROC: 5A1221Z Performance of Cardiac Output, Continuous (ICD-10-PCS; principal; 2017-01-22)
PROC: 021309W Bypass Coronary Artery, Four or More Arteries from Aorta with Autologous Venous Tissue, Open Approach (ICD-10-PCS; principal; 2017-01-22)
PROC: 06BP0ZZ Excision of Right Saphenous Vein, Open Approach (ICD-10-PCS; principal; 2017-01-22)
PROC: B24BZZ4 Ultrasonography of Heart with Aorta, Transesophageal (ICD-10-PCS; principal; 2017-01-22)
PROC: 02HV33Z Insertion of Infusion Device into Superior Vena Cava, Percutaneous Approach (ICD-10-PCS; principal; 2017-01-22)
DX: I25.110 Atherosclerotic heart disease of native coronary artery with unstable angina pectoris (principal); I21.4 Non-ST elevation (NSTEMI) myocardial infarction; I50.23 Acute on chronic systolic (congestive) heart failure; N17.9 Acute kidney failure, unspecified; I25.5 Ischemic cardiomyopathy; I11.0 Hypertensive heart disease with heart failure; D69.6 Thrombocytopenia, unspecified; D72.829 Elevated white blood cell count, unspecified; E11.9 Type 2 diabetes mellitus without complications; K21.9 Gastro-esophageal reflux disease without esophagitis; M19.90 Unspecified osteoarthritis, unspecified site; Z79.4 Long term (current) use of insulin; E78.5 Hyperlipidemia, unspecified; Z82.49 Family history of ischemic heart disease and other diseases of the circulatory system; Z79.82 Long term (current) use of aspirin; N52.9 Male erectile dysfunction, unspecified; T50.2X5A Adverse effect of carbonic-anhydrase inhibitors, benzothiadiazides and other diuretics, initial encounter; T39.315A Adverse effect of propionic acid derivatives, initial encounter; Z87.442 Personal history of urinary calculi; F17.220 Nicotine dependence, chewing tobacco, uncomplicated; E66.9 Obesity, unspecified; Z68.39 Body mass index [BMI] 39.0-39.9, adult; Z23 Encounter for immunization
CPT/HCPCS: C1769; C1894; J0282; J0690; J1644; J1940; J2150; J2250; J2270; J2370; J2440; J2720; J3010; J3480; J3490; J7030; J7050; J7060; J7121; P9045; P9047

== ENCOUNTER → 2017-02-19 | Outpatient (CLI) | payer OTHER ==
[~2017-02-19] MED LIST changes: +COLACE100 MG PO; +CORDARONE,PACE200 MG PO; +COREG6.25 MG PO; +COZAAR50 MG PO; +MILK OF MA400 MG/5 M PO; +MS CONTIN15 MG PO; +MYCOLOG OINTMEN15 GM TOP; +NICODERM / HABIT7 MG TRANS; +PLAVIX75 MG PO; +PROVENTIL OR V6.7 GM INH; +TYLENOL325 MG PO
[2017-02-19 14:37] LABS: BASOPHIL # 0.1 K/uL (0.0-0.2); BASOPHIL % 0.7 %; EOSINOPHIL # 0.3 K/uL (0.0-0.5); EOSINOPHIL % 3.2 %; HEMATOCRIT 46.3 % (37.0-53.0); HEMOGLOBIN 15.8 g/dL (12.0-17.0); IMMATURE GRANULOCYTE # 0.1 K/uL (0.0-0.3); IMMATURE GRANULOCYTE % 0.5 %; LYMPHOCYTE # 2.3 K/uL (0.8-4.0); LYMPHOCYTE % 24.5 %; MCH 30.3 pg (27.0-34.0); MCHC 34.1 gm/dL (32.0-36.5); MCV 88.9 fl (83.0-98.0); MONOCYTE # 0.9 K/uL (0.0-1.0); MONOCYTE % 9.4 %; MPV 10.7 fl (9.4-12.4); NEUTROPHIL # (ANC) 5.9 K/uL (1.4-9.0); NEUTROPHIL % 61.7 %; NRBC % 0 /100WBC (0-0.00); PLATELET COUNT 202 K/uL (150-450); RBC 5.21 M/uL (4.00-6.00); RDW-CV 12.6 % (11.9-14.6); WBC 9.6 K/uL (4.0-11.0)
[2017-02-19 14:52] LABS: ALBUMIN 3.5 gm/dL (3.5-5.0); ANION GAP 14.2 (10.0-19.0); CALCIUM 8.3 mg/dL (8.5-10.5); CREATININE 1.6 mg/dL (0.6-1.3); POTASSIUM 4.2 mMol/L (3.7-5.1); TOTAL BILIRUBIN 0.3 mg/dL (0.0-1.5); TOTAL PROTEIN 7.3 g/dL (6.0-8.4)
== END | disposition disaster alternative care site (69) ==
LOC: LNHI 14:31
PROVIDERS: Thoracic Surgery (Cardiothoracic Vascular Surgery)
DX: I25.10 Atherosclerotic heart disease of native coronary artery without angina pectoris (principal); R53.83 Other fatigue